=== PATIENT | male | born 1950 | race Caucasian/White ===

== ENCOUNTER → 2017-06-24 10:16 | Outpatient (CLI) | payer OTHER, SELFPAY ==
--- NOTE | 2017-06-24 | DI.MRI.S_ITS ---
PROCEDURE: MR KNEE LT WO CON INDICATIONS: left knee chronic pain and leg length discrepancy TECHNIQUE: Noncontrast sagittal PD fast spin echo and T2 fast spin echo with fat saturation, sagittal 3-D FLASH with fat saturation; coronal T1 spin echo and PD fast spin echo with fat saturation, and axial PD fast spin echo with fat saturation through the knee. COMPARISON: None. FINDINGS: Image quality: Diagnostic. Bones and joint: There is no acute fracture or dislocation. No suspicious osseous lesions are evident. There is a small knee joint effusion no significant fluid extending into a Roberts cyst. Intra-articular joint bodies are identified. One of the dominant joint bodies is located within the suprapatellar aspect of the joint space, measuring approximately 6 x 7 mm (image 5, series 3). Multiple joint bodies are seen within the region of the femoral notch. Severe degenerative changes of the knee are present within all 3 compartments with a large developing marginal osteophytes. There is extensive chondromalacia within the medial tibiofemoral compartment with denudation of the hyaline articular cartilage and a degenerative cystic change/reactive marrow edema involving the medial femoral condyle and medial tibial plateau. Extensive irregularity of the hyaline articular cartilage with numerous a small full-thickness defects noted involving the lateral tibiofemoral compartment and the patellofemoral compartment are present. Large marginal osteophytes are identified within the femoral notch. Cruciate ligaments: The anterior cruciate ligament is completely torn. The posterior cruciate ligament appears to be intact. Slight increased signal at the femoral attachment is noted. Menisci: Extensive medial meniscal complex tearing is identified with extensive maceration involving the body of the meniscus. Partial-thickness tearing involving the anterior and posterior attachments of the medial meniscus are present. There also is complex tearing identified involving the lateral meniscus with an oblique tear evident along the femoral articular surface through the body of the lateral meniscus. Prominent thinning of the free edge of the entire lateral meniscus is noted. There is partial thickness tearing involving anterior attachment and posterior root of the lateral meniscus. No complete tear is evident. Medial structures: The medial collateral ligament is intact. Mild edema about the medial collateral ligament is present. The semimembranosus tendon insertion is intact. The imaged portions of the pes anserinus tendons are unremarkable. A small amount of fluid is contained within the pes anserinus bursa. Lateral structures: The popliteal tendon is intact. The lateral collateral ligament proper (fibular collateral ligament) and the proximal tibiofibular ligaments are intact. The distal aspect of the biceps femoris tendon and the iliotibial band are intact. Anterior structures: The quadriceps and patellar tendons are intact. However, there is increased signal involving the distal aspect of the patellar tendon. There is prominent prepatellar bursal thickening with fluid contained within the bursa. There is mild edema within the infrapatellar fat pad. IMPRESSION: 1. Severe degenerative changes of the left knee are most pronounced within the medial tibiofemoral compartment. 2. Small knee joint effusion containing multiple joint bodies. 3. Full-thickness anterior cruciate ligament tear. 4. Complex tearing of the medial and lateral menisci (more pronounced involving the medial meniscus). 5. Possible medial collateral ligament sprain. 6. Mild distal patellar tendinopathy. 7. Fluid within the prepatellar soft tissues may represent prepatellar bursitis. Please correlate clinically. 8. Minimal amount of edema/fluid along the pes anserinus tendons. Please correlate clinically for possible pes anserinus bursitis. Dictated by: Malik Sandy M.D. on 06/24/2017 at 11:49 Approved by: Malik Sandy M.D. on 06/24/2017 at 11:55
== END ==
PROVIDERS: Family Provider Nurse Practitioner Family; PCP Nurse Practitioner Family; Visit Provider Nurse Practitioner Family
DX: M17.12 Unilateral primary osteoarthritis, left knee (principal); M25.462 Effusion, left knee; S83.242A Other tear of medial meniscus, current injury, left knee, initial encounter; S83.282A Other tear of lateral meniscus, current injury, left knee, initial encounter
CPT/HCPCS: 73721

== ENCOUNTER 2018-07-05 21:17 | Inpatient (IN) | payer OTHER, SELFPAY ==
[2018-07-05 21:24] VITALS: BP 155/86; PULSE 114; RESP 15; TEMP 37.5; O2SAT 98; BMI 38.2
--- NOTE | 2018-07-05 21:25 | DI.CT.S_ITS ---
PROCEDURE: CT HEAD/BRAIN WO CON INDICATIONS: stroke (NOT TPA CANDIDATE) TECHNIQUE: Noncontrast 4.5 mm thick angled axial sections acquired from the foramen magnum to the vertex, with coronal and sagittal reformats. For radiation dose reduction, the following was used: automated exposure control, adjustment of mA and/or kV according to patient size. COMPARISON: None. FINDINGS: Image quality: Excellent. CSF spaces: Basal cisterns are patent. No extra-axial fluid collections. The ventricles are symmetric in size and shape. Brain: No intracranial bleeds or masses. There is cerebral volume loss for age, with resultant ventricular and sulcal prominence. There are periventricular and deep white matter chronic small vessel ischemic changes. There is intracranial internal carotid artery atherosclerosis. Skull and face: Calvarium and visualized facial bones appear intact, without suspicious lesions. Sinuses: Visualized sinuses and mastoids are clear. IMPRESSION: No acute intracranial abnormality. Dictated by: Micki Groves M.D. on 07/05/2018 at 21:49 Approved by: Micki Groves M.D. on 07/05/2018 at 21:51
--- NOTE | 2018-07-05 21:41 | ED.NEUROSD ---
HPI - Neuro Symptoms/Deficit General Chief Complaint: Neuro Symptoms/Deficit Stated Complaint: stroke symptoms Time Seen by Provider: 07/05/18 21:20 Source: patient and EMS Mode of arrival: EMS Limitations: no limitations History of Present Illness HPI Narrative: 68-year-old male nonsmoker with noncontributory medical history presents by airlift for evaluation of neurologic symptoms, most notably difficulty in finding words which (per his ) started today at 4:00 p.m.. Patient felt a bit under the weather, very nonspecific in his description but main complaint is an expressive aphasia starting today about 4:00 p.m.. He was brought here by aeromedical ambulance and denies blurred vision, recent injury, or any other focal neurologic findings. He denies runny nose, sore throat or cough. He denies chest pain or shortness of breath. He denies abdominal pain or nausea, vomiting or diarrhea. He was not activated as a code stroke because though his be fast exam his positive his symptoms have been present greater than 4.5 hours and he does not have a LAMS score suggestive of large vessel occlusion. He says he knows exactly what he'd like to say, but is struggling with getting the words out as if there is a disconnect between his brain and mouth. Onset (ago): hour(s) Timing confirmed by: spouse Location: speech History of same: No Severity: moderate Exacerbating factors: none Context: sudden onset On Anticoagulants: No Associated symptoms: denies other symptoms Treatments Prior to Arrival: none Related Data Home Medications Medication Instructions Recorded Confirmed ibuprofen 600 mg PO DAILY #0 02/13/16 07/06/18 [Versabase Testostero] 25 mg TP SEE INSTRUCTIONS 07/06/18 07/06/18 Allergies Allergy/AdvReac Type Severity Reaction Status Date / Time No Known Drug Allergies Allergy Verified 07/05/18 21:28 Review of Systems Constitutional Denies chills, Denies fever(s), Denies lethargy and Denies weakness Eyes Denies change in vision, Denies eye discharge, Denies irritation and Denies loss of vision ENT Ears, Nose, Mouth, and Throat: Denies change in voice, Denies neck pain and Denies sore throat Cardiovascular Denies chest pain, Denies irregular heart rhythm, Denies lightheadedness, Denies palpitations, Denies dyspnea, Denies dyspnea on exertion and Denies orthopnea Respiratory Denies cough, Denies dyspnea, Denies dyspnea on exertion and Denies wheezing Gastrointestinal Gastrointestinal: Denies abdominal pain, Denies change in bowel habits, Denies diarrhea, Denies nausea and Denies vomiting Genitourinary Denies hematuria, Denies flank pain, Denies urinary incontinence and Denies urinary urgency Musculoskeletal Denies neck pain Integumentary/Breasts Denies pruritus, Denies erythema, Denies rash and Denies wounds Neurologic Reports abnormal speech, Denies confusion, Denies loss of vision and Denies weakness Psychiatric Denies anxiety, Denies confusion, Denies depression, Denies homicidal ideation and Denies suicidal ideation Endocrine Denies palpitations Hematologic/Lymphatic Denies easy bruising Allergic/Immunologic Denies wheezing PFSH Family History Mother Multiple myeloma Father Alzheimer disease Grandmother Stroke Social History household members: spouse Smoking Status: Never smoker alcohol intake: current Family History Mother Multiple myeloma Father Alzheimer disease Grandmother Stroke Social History household members: spouse Smoking Status: Never smoker alcohol intake: current Exam Narrative Exam Narrative: GENERAL: 68-year-old male appears stated age, struggling to speak clearly, visibly frustrated by this HEAD: Atraumatic. Normocephalic. No temporal or scalp tenderness. EYES: Pupils equal round and reactive. Extraocular motions intact. No scleral icterus. No injection or drainage. ENT: Nose without bleeding, purulent drainage or septal hematoma. Throat without erythema, tonsillar hypertrophy or exudate. Uvula midline. Airway patent. NECK: Trachea midline. No JVD or lymphadenopathy. Supple, nontender, no meningeal signs. CARDIOVASCULAR: Regular rate and rhythm without murmurs, gallops, or rubs. RESPIRATORY: Clear to auscultation. Breath sounds equal bilaterally. No wheezes, rales, or rhonchi. GASTROINTESTINAL: Abdomen soft, non-tender, nondistended. No hepato-splenomegaly, or palpable masses. No guarding. EXTREMITIES: No clubbing, cyanosis, or edema. No joint tenderness, effusion, or edema noted. BACK: Nontender without deformity or crepitance. No flank tenderness. NEURO: AOx3. SKIN: No rash or erythema. Initial Vital Signs Initial Vital Signs: Vital Signs Temperature 99.5 F 07/05/18 21:24 Pulse Rate 114 H 07/05/18 21:24 Respiratory Rate 15 07/05/18 21:24 Blood Pressure 155/86 H 07/05/18 21:24 Pulse Oximetry 98 07/05/18 21:24 Scores NIH Stroke Scale Level of Conciousness: Alert, keenly responsive Ask month/age: Answers both questions correctly. Open/close eyes, close hand: Performs both tasks correctly Best gaze horizontal: Normal Visual barboza: No visual loss Facial palsy: Normal symetrical movement Left arm drift: No drift for full 10 sec Right arm drift: No drift for full 10 sec Left leg drift: No drift for full 10 sec Right leg drift: No drift for full 10 sec Limb ataxia: Absent Sensory on face/arms/legs: Normal, no sensory loss Best language: Mild to moderate, slurs some words Dysarthria: Normal Extinction or inattention: No abnormality Total NIH Stroke scale score: 1 Course Orders Ordered: ED Orders 07/05/18 21:25 CT head/brain wo con Stat Urine Drug Screen, Rapid Stat EKG-12 Lead Stat 07/05/18 21:45 Basic Metabolic Panel Stat Complete Blood Count AUTO DIFF Stat Lactate (Lactic Acid) Stat Partial Thromboplastin Time Stat Prothrombin Time INR Stat 07/05/18 22:18 Blood Culture Stat 07/06/18 EC echo doppler complete Urgent US carotid doppler BI Urgent 07/06/18 00:58 Consult to Discharge Planning Routine Consult to Occupational Therapy Evaluate & Treat Consult to Physical Therapy Evaluate & Treat Consult to Speech Therapy Evaluate & Treat Education, smoking cessation ONGOING 07/06/18 01:25 UA Complete [Urinalysis and Microscopic] Routine 07/06/18 03:04 Troponin & CK Cardiac Panel Routine 07/06/18 06:00 MR stroke Urgent Hemoglobin A1C% w Est Avg Glu Routine Lipid Panel w/ VLDL Calc Routine Aspirin (Aspirin Chew) 81 mg PO DAILY CITLALI Sodium Chloride (Normal Saline 0.9%) 1,000 mls @ 100 mls/hr IV CONT CITLALI Last Infusion: 07/06/18 03:19 Dose: 100 mls/hr Admin: 07/05/18 22:10 Dose: 150 mls/hr Labetalol HCl (Trandate) 10 mg IV Q6H PRN PRN Reason: Hypertension Discontinued Medications Aspirin (Aspirin) 325 mg PO NOW ONE Stop: 07/05/18 22:56 Last Admin: 07/05/18 23:13 Dose: 325 mg Labetalol HCl (Trandate) 10 mg IV Q4HR PRN PRN Reason: Hypertension Consultations Consultation #1: call to hospitalist for admission Time: 22:45 Vital Signs - 8 hr 07/05/18 21:24 07/05/18 22:03 07/05/18 22:30 Temperature 99.5 F Pulse Rate 114 H 91 H 88 Respiratory Rate 15 25 H 27 H Blood Pressure 155/86 H Blood Pressure [Right Arm] 147/76 H 166/83 H Pulse Oximetry 98 98 96 07/05/18 23:25 07/06/18 00:30 Temperature 98.6 F Pulse Rate 90 95 H Respiratory Rate 13 19 Blood Pressure 159/92 H Blood Pressure [Right Arm] 163/78 H Pulse Oximetry 93 96 MDM - Neuro Symptoms/Deficit Lab Data Result diagrams: 07/05/18 21:45 07/05/18 21:45 Lab Results 07/05/18 07/05/18 07/05/18 Range/Units 21:45 21:45 21:45 WBC 8.9 (4.5-11.0) X10^3/uL RBC 4.31 L (4.5-5.9) X10^6/uL Hgb 14.2 (13.5-17.5) g/dL Hct 41.3 (41-53) % MCV 95.7 (80-100) fL MCH 32.8 (26-34) PG MCHC 34.3 (30-36) % RDW 13.0 (11.6-14.8) % Plt Count 257 (150-400) X10^3/uL Neut % (Auto) 83.8 H (50-75) % Lymph % (Auto) 9.4 L (25-40) % [place] % (Auto) 5.2 (3-14) % Eos % (Auto) 1.2 L (2-4) % Baso % (Auto) 0.4 (0-2) % Neut # (Auto) 7400 H (0977-1299) /uL Lymph # (Auto) 800 L (4104-0687) /uL [place] # (Auto) 500 (0-900) /uL Eos # (Auto) 100 (0-450) /uL Baso # (Auto) 0 (0-100) /uL PT 11.4 (10.1-12.7) SECONDS INR 1.0 (0.9-1.3) APTT 27 (26.4-36.2) SECONDS Sodium 139 (137-145) mmol/L Potassium 4.1 (3.4-5.1) mmol/L Chloride 103 (98-107) mmol/L Carbon Dioxide 26 (22-32) mmol/L BUN 18 (9-20) mg/dL Creatinine 0.90 (0.66-1.25) mg/dL Estimated GFR > 60.0 (>60) mL/min BUN/Creatinine Ratio 20.0 (6-22) Glucose 125 H (80-110) mg/dL Lactate (0.7-2.1) mmol/L Calcium 9.2 (8.4-10.2) mg/dL Total Creatine Kinase (55-170) U/L CK-MB (CK-2) CK-MB (CK-2) Rel Index Urine Color Urine Appearance Urine pH (4.5-8.0) Ur Specific [place] (1.000-1.035) Urine Protein (Negative) Urine Glucose (UA) (Negative) g/dL Urine Ketones (NEGATIVE) Urine Occult Blood (Negative) Urine Nitrate (Negative) Urine Bilirubin (NEGATIVE) Urine Urobilinogen (0.2) E.U./dL Ur Leukocyte Esterase (NEGATIVE) Urine RBC (0-5/HPF) Urine WBC (0-5/HPF) Urine Bacteria (None) Urine Mucus (Negative) Ur Culture Indicated? Urine Opiates Screen (Negative) Ur Oxycodone Screen (Negative) Urine Methadone Screen (Negative) Ur Barbiturates Screen (Negative) U Tricyclic Antidepress (Negative) Ur Phencyclidine Scrn (Negative) Ur Amphetamines Screen (Negative) U Methamphetamines Scrn (Negative) Ur MDMA Scrn (Ecstasy) (Negative) U Benzodiazepines Scrn (Negative) Urine Cocaine Screen (Negative) U Marijuana (THC) Screen (Negative) 07/05/18 07/05/18 07/06/18 Range/Units 21:45 21:45 01:25 WBC (4.5-11.0) X10^3/uL RBC (4.5-5.9) X10^6/uL Hgb (13.5-17.5) g/dL Hct (41-53) % MCV (80-100) fL MCH (26-34) PG MCHC (30-36) % RDW (11.6-14.8) % Plt Count (150-400) X10^3/uL Neut % (Auto) (50-75) % Lymph % (Auto) (25-40) % [place] % (Auto) (3-14) % Eos % (Auto) (2-4) % Baso % (Auto) (0-2) % Neut # (Auto) (0943-6076) /uL Lymph # (Auto) (2256-7339) /uL [place] # (Auto) (0-900) /uL Eos # (Auto) (0-450) /uL Baso # (Auto) (0-100) /uL PT (10.1-12.7) SECONDS INR (0.9-1.3) APTT (26.4-36.2) SECONDS Sodium (137-145) mmol/L Potassium (3.4-5.1) mmol/L Chloride (98-107) mmol/L Carbon Dioxide (22-32) mmol/L BUN (9-20) mg/dL Creatinine (0.66-1.25) mg/dL Estimated GFR (>60) mL/min BUN/Creatinine Ratio (6-22) Glucose (80-110) mg/dL Lactate 1.6 (0.7-2.1) mmol/L Calcium (8.4-10.2) mg/dL Total Creatine Kinase 94 (55-170) U/L CK-MB (CK-2) TNP CK-MB (CK-2) Rel Index TNP Urine Color Urine Appearance Urine pH (4.5-8.0) Ur Specific [place] (1.000-1.035) Urine Protein (Negative) Urine Glucose (UA) (Negative) g/dL Urine Ketones (NEGATIVE) Urine Occult Blood (Negative) Urine Nitrate (Negative) Urine Bilirubin (NEGATIVE) Urine Urobilinogen (0.2) E.U./dL Ur Leukocyte Esterase (NEGATIVE) Urine RBC (0-5/HPF) Urine WBC (0-5/HPF) Urine Bacteria (None) Urine Mucus (Negative) Ur Culture Indicated? Urine Opiates Screen Negative (Negative) Ur Oxycodone Screen Negative (Negative) Urine Methadone Screen Negative (Negative) Ur Barbiturates Screen Negative (Negative) U Tricyclic Antidepress Negative (Negative) Ur Phencyclidine Scrn Negative (Negative) Ur Amphetamines Screen Negative (Negative) U Methamphetamines Scrn Negative (Negative) Ur MDMA Scrn (Ecstasy) Negative (Negative) U Benzodiazepines Scrn Negative (Negative) Urine Cocaine Screen Negative (Negative) U Marijuana (THC) Screen Negative (Negative) 07/06/18 Range/Units 01:25 WBC (4.5-11.0) X10^3/uL RBC (4.5-5.9) X10^6/uL Hgb (13.5-17.5) g/dL Hct (41-53) % MCV (80-100) fL MCH (26-34) PG MCHC (30-36) % RDW (11.6-14.8) % Plt Count (150-400) X10^3/uL Neut % (Auto) (50-75) % Lymph % (Auto) (25-40) % [place] % (Auto) (3-14) % Eos % (Auto) (2-4) % Baso % (Auto) (0-2) % Neut # (Auto) (0970-0864) /uL Lymph # (Auto) (5129-9979) /uL [place] # (Auto) (0-900) /uL Eos # (Auto) (0-450) /uL Baso # (Auto) (0-100) /uL PT (10.1-12.7) SECONDS INR (0.9-1.3) APTT (26.4-36.2) SECONDS Sodium (137-145) mmol/L Potassium (3.4-5.1) mmol/L Chloride (98-107) mmol/L Carbon Dioxide (22-32) mmol/L BUN (9-20) mg/dL Creatinine (0.66-1.25) mg/dL Estimated GFR (>60) mL/min BUN/Creatinine Ratio (6-22) Glucose (80-110) mg/dL Lactate (0.7-2.1) mmol/L Calcium (8.4-10.2) mg/dL Total Creatine Kinase (55-170) U/L CK-MB (CK-2) CK-MB (CK-2) Rel Index Urine Color Yellow Urine Appearance Clear Urine pH 5.0 (4.5-8.0) Ur Specific [place] >=1.030 H (1.000-1.035) Urine Protein Negative (Negative) Urine Glucose (UA) Negative (Negative) g/dL Urine Ketones Negative (NEGATIVE) Urine Occult Blood Negative (Negative) Urine Nitrate Negative (Negative) Urine Bilirubin Negative (NEGATIVE) Urine Urobilinogen 0.2 (0.2) E.U./dL Ur Leukocyte Esterase Negative (NEGATIVE) Urine RBC None seen (0-5/HPF) Urine WBC None seen (0-5/HPF) Urine Bacteria None seen (None) Urine Mucus 1+ H (Negative) Ur Culture Indicated? Cult not indicated Urine Opiates Screen (Negative) Ur Oxycodone Screen (Negative) Urine Methadone Screen (Negative) Ur Barbiturates Screen (Negative) U Tricyclic Antidepress (Negative) Ur Phencyclidine Scrn (Negative) Ur Amphetamines Screen (Negative) U Methamphetamines Scrn (Negative) Ur MDMA Scrn (Ecstasy) (Negative) U Benzodiazepines Scrn (Negative) Urine Cocaine Screen (Negative) U Marijuana (THC) Screen (Negative) Point of Care Testing Glucose POC [address] scan - head: Radiologist's impression: Dusty Ge 68 M [address] [place] [address] CT Scan Report Signed Patient: Dusty Ge LMR#: [id number] : 8Acct:[id number] Age/Sex: 68 / MDate of Service: 07/05/18 Loc: ED Accession Number: [id number] Procedure: CT head/brain wo con Ordering Provider: Ranjith Le D.O. PROCEDURE: CT HEAD/BRAIN WO CON INDICATIONS: stroke (NOT TPA CANDIDATE) TECHNIQUE: Noncontrast 4.5 mm thick angled axial sections acquired from the foramen magnum to the vertex, with coronal and sagittal reformats. For radiation dose reduction, the following was used: automated exposure control, adjustment of mA and/or kV according to patient size. COMPARISON: None. FINDINGS: Image quality: Excellent. CSF spaces: Basal cisterns are patent. No extra-axial fluid collections. The ventricles are symmetric in size and shape. Brain: No intracranial bleeds or masses. There is cerebral volume loss for age, with resultant ventricular and sulcal prominence. There are periventricular and deep white matter chronic small vessel ischemic changes. There is intracranial internal carotid artery atherosclerosis. Skull and face: Calvarium and visualized facial bones appear intact, without suspicious lesions. Sinuses: Visualized sinuses and mastoids are clear. IMPRESSION: No acute intracranial abnormality. Dictated by: Micki Groves M.D. on 07/05/2018 at 21:49 Approved by: Micki Groves M.D. on 07/05/2018 at 21:51 ECG Data Attestation: I personally reviewed and interpreted this ECG as follows: Interpretation: EKG is normal sinus rhythm rate [ 102] and free of any signs of ischemia or ectopy. No ST segmental elevation or depression. No T wave inversions. Incomplete RBBB. ND 150. QRS 102. QT 315 MDM Narrative Medical decision making narrative: 68M presents with expressive aphasia since 1600 (5.25 hours) without evidence of large vessel occlusion. CT normal. NIHSS 1. Not TPA or interventional candidate. Given ASA. Admit for stroke eval. Discharge Plan Departure Patient Disposition: Admitted As Inpatient Clinical Impression: Cerebrovascular accident Qualifiers: CVA mechanism: unspecified Qualified Code(s): I63.9 - Cerebral infarction, unspecified Discharge Date/Time: 07/06/18 00:29 Interventions: ED Discharge Assessment Last Done: 07/06/18 00:28 Referrals: Mirlande Francis ARNP [Primary Care Provider] - Admit Date/Time: 07/05/18 23:18 Admit Provider: Josh Chiu
[2018-07-05 22:03] VITALS: BP 147/76; PULSE 91; RESP 25; O2SAT 98
[2018-07-05] MEDS: SODIUM CHLORIDE 0.9% 1,000 ML 150 ML IV (22:10)
[2018-07-05 22:17] LABS: Prothrombin Time 11.4 SECONDS (10.1-12.7)
[2018-07-05 22:20] LABS: PTT Partial Thromboplastin Tim 27 SECONDS (26.4-36.2)
[2018-07-05 22:21] LABS: Add Manual Diff / Slide Review NO; Basophils Absolute Auto 0 /uL (0-100); Basophils Percent Auto 0.4 % (0-2); Eosinophils Absolute Auto 100 /uL (0-450); Eosinophils Percent Auto 1.2 % (2-4); Hematocrit 41.3 % (41-53); Hemoglobin 14.2 g/dL (13.5-17.5); Lymphocytes Absolute Auto 800 /uL (1100-4500); Lymphocytes Percent Auto 9.4 % (25-40); Mean Corpuscular HGB Conc 34.3 % (30-36); Mean Corpuscular Hemoglobin 32.8 PG (26-34); Mean Corpuscular Volume 95.7 fL (80-100); Monocytes Absolute Auto 500 /uL (0-900); Monocytes Percent Auto 5.2 % (3-14); Neutrophils Absolute Auto 7400 /uL (1500-7000); Neutrophils Percent Auto 83.8 % (50-75); Platelet Count 257 X10^3/uL (150-400); Red Blood Cell Count 4.31 X10^6/uL (4.5-5.9); White Blood Cell Count 8.9 X10^3/uL (4.5-11.0)
[2018-07-05 22:30] VITALS: BP 166/83; PULSE 88; RESP 27; O2SAT 96
[2018-07-05 22:34] LABS: Lactate (Lactic Acid) 1.6 mmol/L (0.7-2.1)
[2018-07-05 22:35] LABS: Blood Urea Nitrogen 18 mg/dL (9-20); Calcium 9.2 mg/dL (8.4-10.2); Carbon Dioxide 26 mmol/L (22-32); Chloride 103 mmol/L (98-107); Estimated Glomerular Filt Rate > 60.0 mL/min (>60); Glucose 125 mg/dL (80-110); HEMOLYSIS < 15 (0-50); Potassium 4.1 mmol/L (3.4-5.1); Sodium 139 mmol/L (137-145)
--- NOTE | 2018-07-05 22:52 | ED_ITS ---
HPI - Neuro Symptoms/Deficit General Chief Complaint: Neuro Symptoms/Deficit Stated Complaint: stroke symptoms Time Seen by Provider: 07/05/18 21:20 Source: patient and EMS Mode of arrival: EMS Limitations: no limitations History of Present Illness HPI Narrative: 68-year-old male nonsmoker with noncontributory medical history presents by airlift for evaluation of neurologic symptoms, most notably difficulty in finding words which (per his ) started today at 4:00 p.m.. Patient felt a bit under the weather, very nonspecific in his description but main complaint is an expressive aphasia starting today about 4:00 p.m.. He was brought here by aeromedical ambulance and denies blurred vision, recent injury, or any other focal neurologic findings. He denies runny nose, sore throat or cough. He denies chest pain or shortness of breath. He denies abdominal pain or nausea, vomiting or diarrhea. He was not activated as a code stroke because though his be fast exam his positive his symptoms have been present greater than 4.5 hours and he does not have a LAMS score suggestive of large vessel occlusion. He says he knows exactly what he'd like to say, but is struggling with getting the words out as if there is a disconnect between his brain and mouth. Onset (ago): hour(s) Timing confirmed by: spouse Location: speech History of same: No Severity: moderate Exacerbating factors: none Context: sudden onset On Anticoagulants: No Associated symptoms: denies other symptoms Treatments Prior to Arrival: none Related Data Home Medications Medication Instructions Recorded Confirmed ibuprofen 600 mg PO DAILY #0 02/13/16 07/06/18 [Versabase Testostero] 25 mg TP SEE INSTRUCTIONS 07/06/18 07/06/18 Allergies Allergy/AdvReac Type Severity Reaction Status Date / Time No Known Drug Allergies Allergy Verified 07/05/18 21:28 Review of Systems Constitutional Denies chills, Denies fever(s), Denies lethargy and Denies weakness Eyes Denies change in vision, Denies eye discharge, Denies irritation and Denies loss of vision ENT Ears, Nose, Mouth, and Throat: Denies change in voice, Denies neck pain and Denies sore throat Cardiovascular Denies chest pain, Denies irregular heart rhythm, Denies lightheadedness, Denies palpitations, Denies dyspnea, Denies dyspnea on exertion and Denies orthopnea Respiratory Denies cough, Denies dyspnea, Denies dyspnea on exertion and Denies wheezing Gastrointestinal Gastrointestinal: Denies abdominal pain, Denies change in bowel habits, Denies diarrhea, Denies nausea and Denies vomiting Genitourinary Denies hematuria, Denies flank pain, Denies urinary incontinence and Denies urinary urgency Musculoskeletal Denies neck pain Integumentary/Breasts Denies pruritus, Denies erythema, Denies rash and Denies wounds Neurologic Reports abnormal speech, Denies confusion, Denies loss of vision and Denies weakness Psychiatric Denies anxiety, Denies confusion, Denies depression, Denies homicidal ideation and Denies suicidal ideation Endocrine Denies palpitations Hematologic/Lymphatic Denies easy bruising Allergic/Immunologic Denies wheezing PFSH Family History Mother Multiple myeloma Father Alzheimer disease Grandmother Stroke Social History household members: spouse Smoking Status: Never smoker alcohol intake: current Family History Mother Multiple myeloma Father Alzheimer disease Grandmother Stroke Social History household members: spouse Smoking Status: Never smoker alcohol intake: current Exam Narrative Exam Narrative: GENERAL: 68-year-old male appears stated age, struggling to speak clearly, visibly frustrated by this HEAD: Atraumatic. Normocephalic. No temporal or scalp tenderness. EYES: Pupils equal round and reactive. Extraocular motions intact. No scleral icterus. No injection or drainage. ENT: Nose without bleeding, purulent drainage or septal hematoma. Throat without erythema, tonsillar hypertrophy or exudate. Uvula midline. Airway patent. NECK: Trachea midline. No JVD or lymphadenopathy. Supple, nontender, no meningeal signs. CARDIOVASCULAR: Regular rate and rhythm without murmurs, gallops, or rubs. RESPIRATORY: Clear to auscultation. Breath sounds equal bilaterally. No wheezes, rales, or rhonchi. GASTROINTESTINAL: Abdomen soft, non-tender, nondistended. No hepato- splenomegaly, or palpable masses. No guarding. EXTREMITIES: No clubbing, cyanosis, or edema. No joint tenderness, effusion, or edema noted. BACK: Nontender without deformity or crepitance. No flank tenderness. NEURO: AOx3. SKIN: No rash or erythema. Initial Vital Signs Initial Vital Signs: Vital Signs Temperature 99.5 F 07/05/18 21:24 Pulse Rate 114 H 07/05/18 21:24 Respiratory Rate 15 07/05/18 21:24 Blood Pressure 155/86 H 07/05/18 21:24 Pulse Oximetry 98 07/05/18 21:24 Scores NIH Stroke Scale Level of Conciousness: Alert, keenly responsive Ask month/age: Answers both questions correctly. Open/close eyes, close hand: Performs both tasks correctly Best gaze horizontal: Normal Visual barboza: No visual loss Facial palsy: Normal symetrical movement Left arm drift: No drift for full 10 sec Right arm drift: No drift for full 10 sec Left leg drift: No drift for full 10 sec Right leg drift: No drift for full 10 sec Limb ataxia: Absent Sensory on face/arms/legs: Normal, no sensory loss Best language: Mild to moderate, slurs some words Dysarthria: Normal Extinction or inattention: No abnormality Total NIH Stroke scale score: 1 Course Orders Ordered: ED Orders 07/05/18 21:25 CT head/brain wo con Stat Urine Drug Screen, Rapid Stat EKG-12 Lead Stat 07/05/18 21:45 Basic Metabolic Panel Stat Complete Blood Count AUTO DIFF Stat Lactate (Lactic Acid) Stat Partial Thromboplastin Time Stat Prothrombin Time INR Stat 07/05/18 22:18 Blood Culture Stat 07/06/18 EC echo doppler complete Urgent US carotid doppler BI Urgent 07/06/18 00:58 Consult to Discharge Planning Routine Consult to Occupational Therapy Evaluate & Treat Consult to Physical Therapy Evaluate & Treat Consult to Speech Therapy Evaluate & Treat Education, smoking cessation ONGOING 07/06/18 01:25 UA Complete [Urinalysis and Microscopic] Routine 07/06/18 03:04 Troponin & CK Cardiac Panel Routine 07/06/18 06:00 MR stroke Urgent Hemoglobin A1C% w Est Avg Glu Routine Lipid Panel w/ VLDL Calc Routine Aspirin (Aspirin Chew) 81 mg PO DAILY CITLALI Sodium Chloride (Normal Saline 0.9%) 1,000 mls @ 100 mls/hr IV CONT CITLALI Last Infusion: 07/06/18 03:19 Dose: 100 mls/hr Admin: 07/05/18 22:10 Dose: 150 mls/hr Labetalol HCl (Trandate) 10 mg IV Q6H PRN PRN Reason: Hypertension Discontinued Medications Aspirin (Aspirin) 325 mg PO NOW ONE Stop: 07/05/18 22:56 Last Admin: 07/05/18 23:13 Dose: 325 mg Labetalol HCl (Trandate) 10 mg IV Q4HR PRN PRN Reason: Hypertension Consultations Consultation #1: call to hospitalist for admission Time: 22:45 Vital Signs - 8 hr 07/05/18 21:24 07/05/18 22:03 07/05/18 22:30 Temperature 99.5 F Pulse Rate 114 H 91 H 88 Respiratory Rate 15 25 H 27 H Blood Pressure 155/86 H Blood Pressure [Right Arm] 147/76 H 166/83 H Pulse Oximetry 98 98 96 07/05/18 23:25 07/06/18 00:30 Temperature 98.6 F Pulse Rate 90 95 H Respiratory Rate 13 19 Blood Pressure 159/92 H Blood Pressure [Right Arm] 163/78 H Pulse Oximetry 93 96 MDM - Neuro Symptoms/Deficit Lab Data Result diagrams: 07/05/18 21:45 07/05/18 21:45 Lab Results 07/05/18 07/05/18 07/05/18 Range/Units 21:45 21:45 21:45 WBC 8.9 (4.5-11.0) X10^3/uL RBC 4.31 L (4.5-5.9) X10^6/uL Hgb 14.2 (13.5-17.5) g/dL Hct 41.3 (41-53) % MCV 95.7 (80-100) fL MCH 32.8 (26-34) PG MCHC 34.3 (30-36) % RDW 13.0 (11.6-14.8) % Plt Count 257 (150-400) X10^3/uL Neut % (Auto) 83.8 H (50-75) % Lymph % (Auto) 9.4 L (25-40) % Marinette % (Auto) 5.2 (3-14) % Eos % (Auto) 1.2 L (2-4) % Baso % (Auto) 0.4 (0-2) % Neut # (Auto) 7400 H (9499-4799) /uL Lymph # (Auto) 800 L (2831-3574) /uL Marinette # (Auto) 500 (0-900) /uL Eos # (Auto) 100 (0-450) /uL Baso # (Auto) 0 (0-100) /uL PT 11.4 (10.1-12.7) SECONDS INR 1.0 (0.9-1.3) APTT 27 (26.4-36.2) SECONDS Sodium 139 (137-145) mmol/L Potassium 4.1 (3.4-5.1) mmol/L Chloride 103 (98-107) mmol/L Carbon Dioxide 26 (22-32) mmol/L BUN 18 (9-20) mg/dL Creatinine 0.90 (0.66-1.25) mg/dL Estimated GFR > 60.0 (>60) mL/min BUN/Creatinine Ratio 20.0 (6-22) Glucose 125 H (80-110) mg/dL Lactate (0.7-2.1) mmol/L Calcium 9.2 (8.4-10.2) mg/dL Total Creatine Kinase (55-170) U/L CK-MB (CK-2) CK-MB (CK-2) Rel Index Urine Color Urine Appearance Urine pH (4.5-8.0) Ur Specific Acworth (1.000-1.035) Urine Protein (Negative) Urine Glucose (UA) (Negative) g/dL Urine Ketones (NEGATIVE) Urine Occult Blood (Negative) Urine Nitrate (Negative) Urine Bilirubin (NEGATIVE) Urine Urobilinogen (0.2) E.U./dL Ur Leukocyte Esterase (NEGATIVE) Urine RBC (0-5/HPF) Urine WBC (0-5/HPF) Urine Bacteria (None) Urine Mucus (Negative) Ur Culture Indicated? Urine Opiates Screen (Negative) Ur Oxycodone Screen (Negative) Urine Methadone Screen (Negative) Ur Barbiturates Screen (Negative) U Tricyclic Antidepress (Negative) Ur Phencyclidine Scrn (Negative) Ur Amphetamines Screen (Negative) U Methamphetamines Scrn (Negative) Ur MDMA Scrn (Ecstasy) (Negative) U Benzodiazepines Scrn (Negative) Urine Cocaine Screen (Negative) U Marijuana (THC) Screen (Negative) 07/05/18 07/05/18 07/06/18 Range/Units 21:45 21:45 01:25 WBC (4.5-11.0) X10^3/uL RBC (4.5-5.9) X10^6/uL Hgb (13.5-17.5) g/dL Hct (41-53) % MCV (80-100) fL MCH (26-34) PG MCHC (30-36) % RDW (11.6-14.8) % Plt Count (150-400) X10^3/uL Neut % (Auto) (50-75) % Lymph % (Auto) (25-40) % Marinette % (Auto) (3-14) % Eos % (Auto) (2-4) % Baso % (Auto) (0-2) % Neut # (Auto) (4188-2254) /uL Lymph # (Auto) (7378-8187) /uL Marinette # (Auto) (0-900) /uL Eos # (Auto) (0-450) /uL Baso # (Auto) (0-100) /uL PT (10.1-12.7) SECONDS INR (0.9-1.3) APTT (26.4-36.2) SECONDS Sodium (137-145) mmol/L Potassium (3.4-5.1) mmol/L Chloride (98-107) mmol/L Carbon Dioxide (22-32) mmol/L BUN (9-20) mg/dL Creatinine (0.66-1.25) mg/dL Estimated GFR (>60) mL/min BUN/Creatinine Ratio (6-22) Glucose (80-110) mg/dL Lactate 1.6 (0.7-2.1) mmol/L Calcium (8.4-10.2) mg/dL Total Creatine Kinase 94 (55-170) U/L CK-MB (CK-2) TNP CK-MB (CK-2) Rel Index TNP Urine Color Urine Appearance Urine pH (4.5-8.0) Ur Specific Acworth (1.000-1.035) Urine Protein (Negative) Urine Glucose (UA) (Negative) g/dL Urine Ketones (NEGATIVE) Urine Occult Blood (Negative) Urine Nitrate (Negative) Urine Bilirubin (NEGATIVE) Urine Urobilinogen (0.2) E.U./dL Ur Leukocyte Esterase (NEGATIVE) Urine RBC (0-5/HPF) Urine WBC (0-5/HPF) Urine Bacteria (None) Urine Mucus (Negative) Ur Culture Indicated? Urine Opiates Screen Negative (Negative) Ur Oxycodone Screen Negative (Negative) Urine Methadone Screen Negative (Negative) Ur Barbiturates Screen Negative (Negative) U Tricyclic Antidepress Negative (Negative) Ur Phencyclidine Scrn Negative (Negative) Ur Amphetamines Screen Negative (Negative) U Methamphetamines Scrn Negative (Negative) Ur MDMA Scrn (Ecstasy) Negative (Negative) U Benzodiazepines Scrn Negative (Negative) Urine Cocaine Screen Negative (Negative) U Marijuana (THC) Screen Negative (Negative) 07/06/18 Range/Units 01:25 WBC (4.5-11.0) X10^3/uL RBC (4.5-5.9) X10^6/uL Hgb (13.5-17.5) g/dL Hct (41-53) % MCV (80-100) fL MCH (26-34) PG MCHC (30-36) % RDW (11.6-14.8) % Plt Count (150-400) X10^3/uL Neut % (Auto) (50-75) % Lymph % (Auto) (25-40) % Marinette % (Auto) (3-14) % Eos % (Auto) (2-4) % Baso % (Auto) (0-2) % Neut # (Auto) (1391-3245) /uL Lymph # (Auto) (6086-4961) /uL Marinette # (Auto) (0-900) /uL Eos # (Auto) (0-450) /uL Baso # (Auto) (0-100) /uL PT (10.1-12.7) SECONDS INR (0.9-1.3) APTT (26.4-36.2) SECONDS Sodium (137-145) mmol/L Potassium (3.4-5.1) mmol/L Chloride (98-107) mmol/L Carbon Dioxide (22-32) mmol/L BUN (9-20) mg/dL Creatinine (0.66-1.25) mg/dL Estimated GFR (>60) mL/min BUN/Creatinine Ratio (6-22) Glucose (80-110) mg/dL Lactate (0.7-2.1) mmol/L Calcium (8.4-10.2) mg/dL Total Creatine Kinase (55-170) U/L CK-MB (CK-2) CK-MB (CK-2) Rel Index Urine Color Yellow Urine Appearance Clear Urine pH 5.0 (4.5-8.0) Ur Specific Acworth >=1.030 H (1.000-1.035) Urine Protein Negative (Negative) Urine Glucose (UA) Negative (Negative) g/dL Urine Ketones Negative (NEGATIVE) Urine Occult Blood Negative (Negative) Urine Nitrate Negative (Negative) Urine Bilirubin Negative (NEGATIVE) Urine Urobilinogen 0.2 (0.2) E.U./dL Ur Leukocyte Esterase Negative (NEGATIVE) Urine RBC None seen (0-5/HPF) Urine WBC None seen (0-5/HPF) Urine Bacteria None seen (None) Urine Mucus 1+ H (Negative) Ur Culture Indicated? Cult not indicated Urine Opiates Screen (Negative) Ur Oxycodone Screen (Negative) Urine Methadone Screen (Negative) Ur Barbiturates Screen (Negative) U Tricyclic Antidepress (Negative) Ur Phencyclidine Scrn (Negative) Ur Amphetamines Screen (Negative) U Methamphetamines Scrn (Negative) Ur MDMA Scrn (Ecstasy) (Negative) U Benzodiazepines Scrn (Negative) Urine Cocaine Screen (Negative) U Marijuana (THC) Screen (Negative) Point of Care Testing Glucose POC [address] scan - head: Radiologist's impression: Dusty Ge 68 M [address] [place] [address] CT Scan Report Signed Patient: Dusty Ge LMR#: [id number] : 8Acct:[id number] Age/Sex: 68 / MDate of Service: 07/05/18 Loc: ED Accession Number: [id number] Procedure: CT head/brain wo con Ordering Provider: Ranjith Le D.O. PROCEDURE: CT HEAD/BRAIN WO CON INDICATIONS: stroke (NOT TPA CANDIDATE) TECHNIQUE: Noncontrast 4.5 mm thick angled axial sections acquired from the foramen magnum to the vertex, with coronal and sagittal reformats. For radiation dose reduction, the following was used: automated exposure control, adjustment of mA and/or kV according to patient size. COMPARISON: None. FINDINGS: Image quality: Excellent. CSF spaces: Basal cisterns are patent. No extra-axial fluid collections. The ventricles are symmetric in size and shape. Brain: No intracranial bleeds or masses. There is cerebral volume loss for age, with resultant ventricular and sulcal prominence. There are periventricular and deep white matter chronic small vessel ischemic changes. There is intracranial internal carotid artery atherosclerosis. Skull and face: Calvarium and visualized facial bones appear intact, without suspicious lesions. Sinuses: Visualized sinuses and mastoids are clear. IMPRESSION: No acute intracranial abnormality. Dictated by: Micki Groves M.D. on 07/05/2018 at 21:49 Approved by: Micki Groves M.D. on 07/05/2018 at 21:51 ECG Data Attestation: I personally reviewed and interpreted this ECG as follows: Interpretation: EKG is normal sinus rhythm rate [ 102] and free of any signs of ischemia or ectopy. No ST segmental elevation or depression. No T wave inversions. Incomplete RBBB. MO 150. QRS 102. QT 315 MDM Narrative Medical decision making narrative: 68M presents with expressive aphasia since 1600 (5.25 hours) without evidence of large vessel occlusion. CT normal. NIHSS 1. Not TPA or interventional candidate. Given ASA. Admit for stroke eval. Discharge Plan Departure Patient Disposition: Admitted As Inpatient Clinical Impression: Cerebrovascular accident Qualifiers: CVA mechanism: unspecified Qualified Code(s): I63.9 - Cerebral infarction, unspecified Discharge Date/Time: 07/06/18 00:29 Interventions: ED Discharge Assessment Last Done: 07/06/18 00:28 Referrals: Mirlande Francis ARNP [Primary Care Provider] - Admit Date/Time: 07/05/18 23:18 Admit Provider: Josh Chiu
[2018-07-05] MEDS: ASPIRIN 325 MG TABLET PO (23:13)
[2018-07-05 23:25] VITALS: BP 163/78; PULSE 90; RESP 13; O2SAT 93
[2018-07-06] VITALS (11 sets, daily range): BP systolic 125–159; BP diastolic 59–92; PULSE 68–119; RESP 16–20; TEMP 36.2–37.2; O2SAT 65–100; BMI 37.4
--- NOTE | 2018-07-06 | DI.ECHO.S_ITS ---
[facility]---------+ [facility] +---------+ : : [address] [place] [address] : : : : [id number] : : : : Phone: [phone] Echocardiogram Report + + :Name: PAUL SUN Study Date: 07/06/2018 Height: 66 in : :[facility] Weight: 232 lb : : Gender: Male BSA: 2.1 m2 : :: 1950 Age: 68 yrs BP: 134/75 mmHg: :Reason For Study: STROKE : :Ordering Physician: Kj : :Hospitalist Performed By: Leela Schaffer : :Referring: LISE DIEZ : + + Interpretation Summary Bubble study could not be performed due to poor image quality. Image quality was compromised due to patient's underlying mental status and inability to participate in exam. -The left ventricular ejection fraction is normal. -The right ventricle grossly appears normal in size with probable normal systolic function. -Pulmonary artery pressures cannot be estimated because of the lack of a measurable TR jet velocity. -No hemodynamically significant valvular abnormalities. -There is no prior echocardiogram noted for this patient. Procedure: A two-dimensional transthoracic echocardiogram with color flow and Doppler was performed. The study quality was technically difficult. There is no prior echocardiogram noted for this patient. A contrast injection of Definity was performed to improve assessment of LV function. The patient was in normal sinus rhythm during the exam. Left Ventricle: The left ventricle is normal in size. Trabeculae near apex are visualized. No thrombus is observed. There is no thrombus. The ejection fraction is estimated to be 60-65%. The left ventricular ejection fraction is normal. There are no focal wall motion abnormalities. Diastolic parameters suggest a relaxation abnormality of the left ventricle, consistent with probable normal filling pressures. Right Ventricle: The right ventricle grossly appears normal in size with probable normal systolic function. Atria: The left atrium is not well visualized. Right atrial size is normal. There is no Doppler evidence for an interatrial shunt. Mitral Valve: The mitral valve is grossly normal. At least trace MR. Aortic Valve: The aortic valve is normal in structure and function. There is mild aortic regurgitation. Tricuspid Valve: The tricuspid valve is normal. There is a trace or physiologic amount of tricuspid regurgitation. Pulmonary artery pressures cannot be estimated because of the lack of a measurable TR jet velocity. Pulmonic Valve: The pulmonic valve is not well seen, but is grossly normal. There is a trace or physiologic amount of pulmonic regurgitation. Great Vessels: The aortic root is borderline dilated. The ascending aorta is normal in size. The pulmonary artery is normal size. The IVC is of normal diameter and collapses greater than 50% with a sniff. This suggests a low right atrial pressure of 3 mm Hg. Pericardium/ Pleura There is no pericardial effusion. There is no pleural effusion. MMode/2D Measurements & Calculations LVIDd: 4.7 cm LVOT diam: 2.2 cm LVIDs: 3.1 cm Ao root diam: 4.0 cm FS: 34.5 % asc Aorta Diam: 3.4 cm EPSS: 0.23 cm Ao Arch Diam (Prox Trans): 3.5 cm IVSd: 0.96 cm LVPWd: 0.83 cm LV patterson. diameter/BSA (cm/m^2): 2.2 LV sys. diameter/BSA (cm/m^2): 1.5 LA A4 area: 25.5 cm2 RA long axis: 5.0 cm LA length (vol): 6.0 cm RA area: 17.2 cm2 RA vol: 50.5 ml RA : 23.7 ml/m2 IVC diam: 1.2 cm RVD1 (basal): 4.0 cm RVD2 (mid): 2.5 cm TAPSE: 1.8 cm Doppler Measurements & Calculations Ao V2 max: 125.6 cm/sec LVOT Max Avel: 93.1 cm/sec Ao V2 mean: 83.4 cm/sec LV V1 max P.5 mmHg Ao max P.3 mmHg LV V1 VTI: 21.5 cm Ao mean P.1 mmHg BLAKE(I,D): 3.2 cm2 Ao V2 VTI: 25.0 cm BLAKE(V,D): 2.7 cm2 sev ratio: 0.86 BLAKE indexed to BSA (cm^2/m^2): 1.5 MV E max avel: 64.5 cm/sec PA V2 max: 93.8 cm/sec MV A max avel: 73.5 cm/sec PA V2 mean: 62.3 cm/sec MV E/A: 0.88 PA mean P.7 mmHg Med Peak E' Avel: 5.9 cm/sec PA Accel Time: 0.11 sec E/E' med: 10.9 Lat Peak E' Avel: 8.1 cm/sec E/E' lat: 8.0 E/e' average: 9.5 MV dec time: 0.13 sec SV([facility]): 79.2 ml Electronically signed by: Kirill Tucker M.D. on Reading Physician:07/06/2018 06:54 PM
[2018-07-06 01:30] LABS: Bacteria Urine None Seen; RBC Urine None Seen (0-5/HPF); WBC Urine None Seen (0-5/HPF)
--- NOTE | 2018-07-06 01:34 | PC.ADMIT ---
Addendum entered by Joy Manriquez R.N. 07/06/18 06:25: 0513 THERAPY TECHNICIAN had just been in room with patient placing padding/netting over IV site and reported patient minimally verbally responsive but did answer yes to question. After she exited room, heard oximeter alarming and upon entering room at 0514 sat was down to 65%. Patient was non responsive, snoring respirations, diaphoretic and pupils dilated and unresponsive. Rapid response/code stroke called. Patient placed on oxygen at 6L/min and sat up to 94%. BP 156/92 with HR of 97 (per in room monitor patient's HR was at 119 when oximeter first starting alarming). CBG was 126. YOON Beal and ER MDRey both in room. No response to verbal or pain stimuli. Began having gagging type reflex but did not vomit; suction set up but not needed. After 15 minutes, snoring respirations stopped and pupils no longer dilated. Patient able to grasp onto RN hand but still no verbal response. Slowing began to have more visual focus and when right arm lifted would turn head to right and look at RN. Keppra and Solumedrol given as per MD orders. was contacted and now in room and has spoken to YOON about what occurred. Patient is now able to respond to some questions asked and able to focus and maintain eye contact. Still making occasional gagging noises but does not answer as to whether he is nauseated or not so medicated with Zofran to prevent emesis. Now opens eyes and following some commands. Has weak but equal hand grasps and is able to lift both arms. Able to wiggle feet but when asked to lift legs states no. Still having expressive aphasia. Addendum entered by Joy Manriquez R.N. 07/06/18 03:59: NIH difficult to assess correctly due to continued expressive aphasia. When testing vision patient states he can see even when RN's hands outside of visual field. When testing sensory states both most of time when touching face/arms/legs but sometimes will identify touch correctly. States age is 38 but does know month. NIH remains at 5. Original Note: Admitted to room 227 from ER per stretcher accompanied by spouse, Sherry. Patient is alert and oriented but with expressive aphasia making communication difficult. Denies hearing/vision loss. Does complain of 4/10 headache which has been ongoing since prior to admission. NIH score of 5 reported to YOON Beal. Breath sounds CTA with RA sat of 96%. HRR in 90's at rest but increasing as high as 150's when up to bathroom; is being monitored on telemetry. BP elevated at 159/92. Denies nausea. BT present and abdomen is soft. Denies dysuria, frequency, urgency or incontinence; UA sent to lab per verbal order. Is able to move self in bed. Is weak and unsteady on feet during transfer from stretcher to bed so reminded to call for assistance before getting out of bed; spouse/patient verbalize understanding. Skin intact but does have scarring on left lower leg related to hx surgery. reports patient's left leg is several inches shorter than right leg. Denies having had any falls; fall risk is moderate. Oriented to room, bed controls and call light. Questions asked/answered. [address] Admission Note: The patient,Dusty Ge,68 y/o, was given written information regarding hospital policies, unit procedures and contact persons. Patient's smoking status: Never smoker. Vital Signs - 8 hr 07/05/18 21:24 07/05/18 22:03 07/05/18 22:30 Temperature 99.5 F Pulse Rate 114 H 91 H 88 Respiratory Rate 15 25 H 27 H Blood Pressure 155/86 H Blood Pressure [Right Arm] 147/76 H 166/83 H Pulse Oximetry 98 98 96 07/05/18 23:25 07/06/18 00:30 Temperature 98.6 F Pulse Rate 90 95 H Respiratory Rate 13 19 Blood Pressure 159/92 H Blood Pressure [Right Arm] 163/78 H Pulse Oximetry 93 96
[2018-07-06 01:37] LABS: Urine Amphetamines Negative (Negative); Urine Cocaine Negative (Negative); Urine MDMA Negative (Negative); Urine Methamphetamines Negative (Negative); Urine Morphine/Opi cutoff 2000 Negative (Negative); Urine Phencyclidine Negative (Negative); Urine Tetrahydrocannabinol Negative (Negative)
[2018-07-06 01:38] LABS: Urine Barbiturates Negative (Negative); Urine Benzodiazepines Negative (Negative); Urine Methadone Negative (Negative); Urine Oxycodone Negative (Negative); Urine Tricyclic Antidepressant Negative (Negative)
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
[2018-07-06 02:54] LABS: Appearance Urine UA Clear; Color Urine UA Yellow; Protein Urine UA Negative (Negative); Specific Gravity Urine UA >=1.030 (1.000-1.035)
[2018-07-06 02:55] LABS: Bilirubin Urine UA Negative (NEGATIVE); Culture Indicated Urine Cult Not Indicated; Glucose Urine UA NEGATIVE (Negative); Ketones Urine UA NEGATIVE (NEGATIVE); Leukocyte Esterase Urine UA NEGATIVE (NEGATIVE); Mucus Urine 1+ (Negative); Nitrite Urine UA NEGATIVE (Negative); Occult Blood Urine UA Negative (Negative); Urobilinogen Urine UA 0.2 E.U./dL (0.2)
[2018-07-06 03:18] LABS: Creatine Kinase 94 U/L (55-170)
[2018-07-06 03:31] LABS: Troponin I < 0.012 ng/mL (0.01-0.034)
[2018-07-06 05:17] LABS: Hemoglobin A1C% w Est Avg Glu 5.7 % (4.0-6.0)
[2018-07-06 05:25] LABS: Cholesterol 229 mg/dL (140-199); HDL Cholesterol 47 mg/dL (40-60); LDL Cholesterol Calculated 164 mg/dL (<100); Triglycerides 91 mg/dL (35-150); VLDL Cholesterol Calculated 18 mg/dL (2-30)
--- NOTE | 2018-07-06 05:26 | PC.NURSE ---
07/06 @ 0520 - PATIENT CGB IS 126. REPORTED TO Min THOMAS RN
[2018-07-06] MEDS: levETIRAcetam 1,000 MG in SODIUM CHLORIDE 0.9% 100 ML 440 ML IV (05:41)
[2018-07-06] MEDS: methylPREDNISolone 125 MG/2 ML VIAL IV (05:42)
--- NOTE | 2018-07-06 06:00 | DI.MRI.S_ITS ---
PROCEDURE: MR STROKE Pre- and post-contrast brain MRI, non-contrast brain MR angiogram, pre- and postcontrast neck MR angiogram INDICATIONS: neuro changes, aphasia, dysarthria TECHNIQUE: Brain: Noncontrast axial T1 spin echo, axial T2 fast spin echo, sagittal and axial FLAIR, coronal T2 fast spin echo, axial gradient echo, axial diffusion and ADC through the brain. After the administration of contrast, axial 3D VIBE of the cranial vasculature and brain. Brain MRA: Non-contrast 3-D time of flight MR angiogram, with multiple zyqvdjq-rfdktauti-xfegeqgkvn (MIP) reformats performed. Neck MRA: Axial and sagittal TruFISP through the neck. Coronal dynamic MR angiogram during administration of contrast in the arterial and venous phases, with 3-dimenstional bwqyrfu-fzxyluenu-syyilwhejt (MIP) reformats constructed from subtraction images. COMPARISON: [facility], CT, CT HEAD/BRAIN WO CON, 07/05/2018, 21:28. FINDINGS: Image quality: This examination is limited by involuntary motion artifact. BRAIN: CSF spaces: Ventricles are normal in size and shape. Basal cisterns are patent. No extra-axial fluid collections. Brain: No intracranial bleeds or mass effects. Huggins-white matter interface is normal. Diffusion weighted images show no acute ischemic insults. Brainstem appears normal. Normal intravascular flow voids are present. No abnormal intracranial enhancement. Skull and face: Calvarial marrow signal is normal. Orbits appear normal. Sinuses: Sinuses and mastoids are clear. BRAIN MR ANGIOGRAM: Anterior circulation: Intracranial internal carotid arteries demonstrate generalized irregularity throughout their petrous portions. The flow within the paired anterior cerebral arteries is normal and symmetric. The flow within the middle cerebral arteries is normal and symmetric. The anterior communicating artery is seen. No stenoses, occlusions, or aneurysms. Posterior circulation: The visualized portions of the vertebral arteries demonstrate normal caliber, and join to form a normal appearing basilar artery. The flow within the posterior cerebral arteries is normal and symmetric. No stenoses, occlusions, or aneurysms. NECK MR ANGIOGRAM: Carotids: Great vessels demonstrate a conventional anatomy as they arise from the aortic arch. The proximal great vessels are not well-seen. The origins of the common carotid arteries appear patent. The calibers and courses of both common carotid arteries are normal. The bifurcation regions appear normal bilaterally. The internal carotid arteries demonstrate normal course and caliber. Posterior circulation: The origins of the vertebral arteries are not well-seen. More superior portions of both vertebral arteries demonstrate normal course and caliber, and join to form a normal appearing basilar artery. Miscellaneous: Subclavian arteries appear patent. Pre-contrast images through the neck show no soft tissue abnormalities. IMPRESSION: Motion limited study. BRAIN MRI: No findings of acute or subacute infarction can be seen. Note is made of age-appropriate brain parenchymal volume loss and chronic small vessel ischemic changes. No masses or abnormal enhancement can be seen. BRAIN MR ANGIOGRAM: No significant intracranial arterial abnormality can be seen. Generalized irregularity can be seen within the petrous portions of the intracranial internal carotid arteries, which may be related to artifact. NECK MR ANGIOGRAM: Within the arteries of the neck, no hemodynamically significant stenosis can be seen. Dictated by: Diaz Pollock M.D. on 07/06/2018 at 7:19 Approved by: Diaz Pollock M.D. on 07/06/2018 at 7:27
[2018-07-06] MEDS: ONDANSETRON 4 MG/2 ML INJ IV (06:10)
[2018-07-06 06:11] LABS: Add Manual Diff / Slide Review NO; Basophils Absolute Auto 100 /uL (0-100); Basophils Percent Auto 0.4 % (0-2); Eosinophils Absolute Auto 200 /uL (0-450); Eosinophils Percent Auto 1.3 % (2-4); Hematocrit 41.3 % (41-53); Hemoglobin 14.1 g/dL (13.5-17.5); Lymphocytes Absolute Auto 1700 /uL (1100-4500); Lymphocytes Percent Auto 14.4 % (25-40); Mean Corpuscular Hemoglobin 32.5 PG (26-34); Mean Corpuscular Volume 95.6 fL (80-100); Monocytes Absolute Auto 800 /uL (0-900); Neutrophils Absolute Auto 8800 /uL (1500-7000); Neutrophils Percent Auto 76.9 % (50-75); Platelet Count 256 X10^3/uL (150-400); Red Blood Cell Count 4.33 X10^6/uL (4.5-5.9); Red Cell Distribution Width 12.9 % (11.6-14.8); White Blood Cell Count 11.5 X10^3/uL (4.5-11.0)
[2018-07-06 06:17] LABS: Creatine Kinase 90 U/L (55-170)
[2018-07-06 06:18] LABS: Alanine Aminotransferase 25 IU/L (21-72); Albumin 4.5 g/dL (3.5-5.0); Albumin Globulin Ratio 1.7 (1.0-2.8); Alkaline Phosphatase 84 U/L (38-126); Aspartate Aminotransferase 25 IU/L (17-59); BUN Creatinine Ratio 17.8 (6-22); Bilirubin Total 0.6 mg/dL (0.2-1.3); Blood Urea Nitrogen 16 mg/dL (9-20); Calcium 8.8 mg/dL (8.4-10.2); Carbon Dioxide 19 mmol/L (22-32); Chloride 104 mmol/L (98-107); Estimated Glomerular Filt Rate > 60.0 mL/min (>60); Globulin 2.7 g/dL (1.7-4.1); Glucose 166 mg/dL (80-110); HEMOLYSIS < 15 (0-50); Potassium 4.1 mmol/L (3.4-5.1); Sodium 140 mmol/L (137-145); Total Protein 7.2 g/dL (6.3-8.2)
[2018-07-06 06:39] LABS: HCO3 ABG 21 mmol/L (22-26); Oxygen Saturation ABG 97 % (95-100); PCO2 ABG 42.1 mmHg (35-45); PO2 ABG 96 mmHg (80-100); TCO2 ABG 22 mmol/L (21-31); pH ABG 7.31 (7.35-7.45)
--- NOTE | 2018-07-06 07:25 | PM.EVENT ---
Date Patient Seen: 07/06/18 Time Patient Seen: 05:20 RN asking to have patient seen at bedside. Patient seen at bedside promptly. I am being told that patient was noted to be hypoxic, this prompted the nurse to check on the patient. At time of evaluation patient is observed to be extremely diaphoretic. He is hyperventilating. His O2 demand is at 6 L with SpO2 of 93%. He is not responding to commands and does not follow commands. There is some posturing. No stiffening or overt muscular contractions or fasciculations. There is mild incontinence of urine. Patient is a DNR. No aggressive interventions attempted. DDx: Seizure activity vs cerebral edema - BP 156/93 - Glu 166 - 1000 mg of Keppra - 125 mg of solumedrol - CBC, CMP Patient's was notified. Arrived at bedside and was updated on course of events. Code status was revisited with the and patient remains to be a DNR. Patient was pain continuously reassessed, within 30 minutes breathing improved, he is starting to be more responsive but still not communicative At at 1 hour re-assessment, vital signs remained stable, now is seen to have spontaneous movement of upper and lower extremities, makes an effort to communicate in phrases that her clear and understandable
[2018-07-06] MEDS: ASPIRIN 81 MG TAB PO (09:59)
[2018-07-06] MEDS: SODIUM CHLORIDE 0.9% 1,000 ML 100 ML IV (11:06)
--- NOTE | 2018-07-06 11:43 | PC.NURSE ---
Patient picked up at beginning of shift for MR Stroke protocol. at bedside. Upon his return from test, patient assisted into bed, his gown and underwear were wet with urine and sweat. Patient changed, given sponge bath and repositioned back in bed. Patient has limited response answering yes or no. Not able to follow commands. Able to move all extremities weakly, but not following commands when directed to perform specific movements or tasks. States his name is Carloz. VSS, continuous pulse ox in place. O2 decreased from 6L to 4L, as patient was at 100% ). ECHO completed at bedside. Patient sleeping soundly at this time. is waiting to speak with MD about results and plan of care. Bed alarm on, continue to monitor.
[2018-07-06 13:25] LABS: Creatine Kinase 100 U/L (55-170)
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
[2018-07-06 13:38] LABS: Troponin I < 0.012 ng/mL (0.01-0.034)
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
--- NOTE | 2018-07-06 13:53 | CM.DANOTE ---
DCP/Assessment: Reviewed chart. Patient is a 68yr old male admitted to [facility] with stroke like symptoms. PCP listed is Mirlande Francis. Primary payor is [address] [place] [address]. Reviewed chart. Spoke with Dr. Carroll in AM rounds and she reports that ECHO planned for today. Patient came in with stroke like symptoms that have not resolved. Several hours later Dr. Carroll determined that patient would be best served at higher level facility. Patient expected to transfer to [facility] on [place] today. NETWORK DEVELOPMENT COORDINATOR met with spouse/Sherry at bedside briefly explained role. Spouse clearly emotional over transfer, offered support. RN reports that she was told by spouse that patient completely I prior to this event. Offered spouse support and notified UR/Marek of patient's immediate transfer. P: Transfer to [facility] today. LEXIS Vines Discharge Planning/Care Management CM Discharge Assessment Start: 07/06/18 13:38 Freq: Status: Active Protocol: Document 07/06/18 13:38 KJS (Rec: 07/06/18 13:53 KJS [id number]) Discharge Planning Assessment Assigned Microsoft Crm Developer LEXIS Vines Contact Information Sherry Joo (spouse) [phone] Advance Directives? No History Provided By Patient Family Member Medical Record Prior Living Arrangements House Household Members spouse Type of transporation used prior to Drives own vehicle admit Comment Prior to admit patient completely I with all ADL's. Independent with ADL's Yes Is patient alert and oriented? Yes Caregiver for Another No Barriers to Discharge No Discharge Plan Transfer to Higher Level of Care Transportation Arrangement Patient transferring to [facility] on [address]. Review Status In Process Next Review Type Continued Stay Review
--- NOTE | 2018-07-06 16:16 | PC.NURSE ---
Pt left by [facility] transport at 1600. LANETTE Ruiz gave report to ambulance crew and staff at [facility]. Spouse accompanied pt.
== END 2018-07-06 16:00 | disposition short-term general hospital (02) | DRG 98 ==
LOC: ED 23:12 → AC 23:19
PROVIDERS: Internal Medicine; Admitting Provider Nurse Practitioner Gerontology; Emergency Provider Emergency Medicine; Family Provider Nurse Practitioner Family; PCP Nurse Practitioner Family; Visit Provider Nurse Practitioner Gerontology
DX: B00.4 Herpesviral encephalitis (principal); R47.01 Aphasia; R41.4 Neurologic neglect syndrome; R56.9 Unspecified convulsions; E66.9 Obesity, unspecified; Z68.37 Body mass index [BMI] 37.0-37.9, adult; I10 Essential (primary) hypertension; E78.5 Hyperlipidemia, unspecified
CPT/HCPCS: 36415; 36591; 36600; 70450; 70548; 70553; 80048; 80053; 80061; 80305; 81001; 82550; 82805; 82962; 83036; 83605; 84484; 85025; 85610; 85730; 87040; 93005; 94762; 96360; 96361; 97166; 99283; 99285; A9579; C8929; J1953; J2405; J2930; Q9957

== ENCOUNTER → 2018-08-07 12:45 | Outpatient (CLI) | payer OTHER, SELFPAY ==
[2018-07-06 00:30] VITALS: BMI 37.4
--- NOTE | 2018-08-07 | DI.RAD.S_ITS ---
This blank DEXA report has been sent in error by the PACS system. The correct and complete report will be forthcoming in 1-2 days. Thank you for your patience and understanding. Dictated by: Andre Hummel M.D. on 08/07/2018 at 15:30 Approved by: Andre Hummel M.D. on 08/07/2018 at 15:30
--- NOTE | 2018-08-07 | DI.RAD.S_ITS ---
PROCEDURE: XR THORACIC SPINE 3V INDICATIONS: PATHOLOGICAL FRACTURE WITH ROUTINE HEALING TECHNIQUE: 3 views of the thoracic spine were acquired. COMPARISON: [facility], CT, ABDOMEN/PELVIS WITH CONTRAST, 12/23/2007, 14:15. [facility], CR, CHEST 2 VIEW, 10/25/2010, 10:55. [facility], , DEXA AXIAL SKELETON, 03/01/2013, 12:53. [facility], , CHEST 2 VIEW, 02/13/2016, 12:48. FINDINGS: Bones: No dislocations on the lateral view there appears to be a T12 mild anterior wedge compression fracture with ostiolysis involving the anterior two thirds of the vertebral body marrow space and the anterior border of the vertebral body cortex appears eroded. No suspicious bony lesions. 12 pairs of ribs are noted, and appear intact where visualized. Soft tissues: No paravertebral stripe thickening. A previously present hiatal hernia is seen on the current plain film imaging there is an excess of soft tissue in the area of the hiatus hernia that has not been previously present. In this clinical circumstance of a reported pathologic fracture this might represent evidence of a gastric carcinoma in the area of the hiatal hernia. IMPRESSION: The clinical history of pathologic fracture is not accompanied by additional clinical information of area of the pathologic fracture or a corresponding imaging studies through that area of diagnosis. The current study appears to show an osteolytic process involving the anterior two thirds of the T12 vertebral body and a mild pathologic fracture with height reduction at that level. Possible gastric mass in addition to hiatal hernia behind the heart rate Please correlate clinically to determine whether proceeding to spine MRI is warranted or whether CT scanning of the chest/abdomen/pelvis should be obtained for additional assessment of the abnormalities discussed above. Dictated by: Andre Hummel M.D. on 08/07/2018 at 15:30 Approved by: Andre Hummel M.D. on 08/07/2018 at 15:36
== END ==
PROVIDERS: Family Provider Nurse Practitioner Family; PCP Nurse Practitioner Family; Visit Provider Nurse Practitioner Family
DX: M84.40XD Pathological fracture, unspecified site, subsequent encounter for fracture with routine healing (principal); M81.0 Age-related osteoporosis without current pathological fracture
CPT/HCPCS: 72072; 77080

== ENCOUNTER → 2018-09-07 08:52 | Outpatient (CLI) | payer OTHER, SELFPAY ==
[2018-07-06 00:30] VITALS: BMI 37.4
--- NOTE | 2018-09-07 | DI.CT.S_ITS ---
PROCEDURE: CT CHEST ABD PEL W CON INDICATIONS: Abnormal T-spine X-ray TECHNIQUE: After the administration of oral and intravenous contrast, 5 mm thick sections acquired from the lung apices to the symphysis. 5 mm coronal and sagittal reformats were performed, with additional 7 mm coronal MIP reformats through the lungs. For radiation dose reduction, the following was used: automated exposure control, adjustment of mA and/or kV according to patient size. COMPARISON: [facility], CR, XR THORACIC SPINE 3V, 08/07/2018, 14:17. [facility], CT, ABDOMEN/PELVIS WITH CONTRAST, 12/23/2007, 14:15. FINDINGS: Image quality: Excellent. CHEST: Lungs and pleura: No acute airspace opacities. No pleural effusions or pneumothorax. Central and peripheral airways appear patent and normal in caliber. Mediastinum: Heart size is normal. No pericardial effusion. No mediastinal or hilar adenopathy by size criteria. Thoracic aorta and central pulmonary arteries are normal in size. Esophagus is normal in caliber. There is a moderate-sized hiatal hernia. Chest wall: No axillary or supraclavicular adenopathy by size criteria. Thyroid gland is normal. ABDOMEN: Solid organs: Mild diffuse hepatic fatty infiltration. Liver is normal in size and enhancement. Gallbladder is normal. Biliary system is non-dilated. Pancreas enhances normally. Spleen is normal in size and enhancement. No adrenal nodules. Kidneys demonstrate normal size and enhancement, without hydronephrosis. There is a 4 mm nonobstructive stone in the right kidney and a 3 mm stone versus stone in the left kidney. Peritoneum and bowel: There is a 1.4 x 2.5 cm mass or mass-like density in the posterior wall of the stomach. There are multiple colonic diverticula. No findings to suggest acute diverticulitis. Appendix is normal. Bowel loops demonstrate normal wall thickness and caliber. No free fluid or air. Nodes and vessels: No retroperitoneal or mesenteric adenopathy by size criteria. Aorta and inferior vena cava are normal in size. Miscellaneous: No ventral hernias. PELVIS: Genitourinary: Bladder wall thickness is normal. Prostate is mildly enlarged. Miscellaneous: No inguinal hernias or adenopathy. Bones: No suspicious bony lesions. Severe chronic vertebral body compression fracture of T7. Degenerative changes are noted in thoracic and lumbar spine. IMPRESSION: 1. A 1.4 x 2.5 cm mass or mass-like density in the posterior wall of the stomach. Recommend EGD for followup evaluation. 3. There is a moderate-sized hiatal hernia. 3. No metastatic disease is identified in chest, abdomen or pelvis. 4. Diverticulosis without active diverticulitis. 5. Bilateral nonobstructive renal calculi. 6. Severe compression fracture of T7. Dictated by: Khloe Shaw M.D. on 09/07/2018 at 14:48 Approved by: Khloe Shaw M.D. on 09/08/2018 at 11:01
[2018-09-07 10:03] LABS: BUN Creatinine Ratio 18.8 (6-22); Blood Urea Nitrogen 15 mg/dL (9-20); Calcium 9.1 mg/dL (8.4-10.2); Carbon Dioxide 28 mmol/L (22-32); Chloride 105 mmol/L (98-107); Estimated Glomerular Filt Rate > 60.0 mL/min (>60); Glucose 106 mg/dL (80-110); HEMOLYSIS 25 (0-50); Potassium 4.5 mmol/L (3.4-5.1); Sodium 140 mmol/L (137-145)
== END ==
PROVIDERS: PCP Family Medicine; Visit Provider Neurological Surgery
DX: R91.1 Solitary pulmonary nodule (principal); K44.9 Diaphragmatic hernia without obstruction or gangrene; K57.90 Diverticulosis of intestine, part unspecified, without perforation or abscess without bleeding; N20.0 Calculus of kidney; M48.54XA Collapsed vertebra, not elsewhere classified, thoracic region, initial encounter for fracture
CPT/HCPCS: 36415; 71260; 74177; 80048; Q9967

== ENCOUNTER → 2019-03-30 16:18 | Outpatient (CLI) | payer MEDICARE, SELFPAY ==
[2018-07-06 00:30] VITALS: BMI 37.4
--- NOTE | 2019-03-30 | DI.US.S_ITS ---
PROCEDURE: US RENAL COMPLETE INDICATIONS: CALCULUS OF KIDNEY TECHNIQUE: Real-time scanning was performed of the kidneys and bladder, with image documentation. COMPARISON: None. FINDINGS: Kidneys: Kidneys are normal in size. Right kidney measures 11.3 cm long; left kidney measures 10.4 cm long. Right renal cortical thickness is 1.4 cm; left renal cortical thickness is 1.3 cm. Renal cortical echotexture is normal. No right-sided hydronephrosis or nephrolithiasis bilaterally. There is slight prominence of the lower third collecting system at the left kidney, however the appearance may be secondary to small peripelvic cysts instead. No suspicious solid mass lesions. Bladder: Pre-void bladder volume is 125 mL. Post-void residual is 8.0 mL. Pre-void images demonstrate no intraluminal masses or stones. On pre-void images, bilateral ureteral jets are noted with color Doppler interrogation. (Of note, ureteral jets may not be detectable in up to 25% of cases due to insufficient differences in specific gravity between ureteral and bladder urine). Miscellaneous: No free pelvic fluid. IMPRESSION: A urinary tract stone is not found. There is slight prominence of the lower third left-sided collecting system (versus small adjacent peripelvic cysts superimposed) which can be seen in the setting of recent passage of a calculus. Normal bladder function. No bladder calculus seen. Dictated by: Andre Hummel M.D. on 03/31/2019 at 9:56 Approved by: Andre Hummel M.D. on 03/31/2019 at 10:10
== END ==
PROVIDERS: PCP Family Medicine; Referring Provider Family Medicine; Visit Provider Family Medicine
DX: N20.0 Calculus of kidney (principal); R39.9 Unspecified symptoms and signs involving the genitourinary system
CPT/HCPCS: 76770

== ENCOUNTER 2022-04-09 09:00 | Day surgery (SDC) | payer MEDICARE, SELFPAY ==
[2018-07-06 00:30] VITALS: BMI 37.4
[2022-04-09] VITALS (7 sets, daily range): BP systolic 92–129; BP diastolic 59–79; PULSE 65–101; RESP 15–17; TEMP 36.6; O2SAT 92–99; BMI 39.9
[2022-04-09] MEDS: LACTATED RINGERS 1,000 ML 200 ML IV (10:29)
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
--- NOTE | 2022-04-09 11:31 | PM.OP.COLON ---
Operative Date/Time/Diagnoses Date of procedure: 04/09/22 Time of procedure: 11:31 Pre-op diagnosis: Personal history of colonic polyps Post-op diagnosis: same Procedure & Clinicians Study performed: Colonoscopy Same procedure as scheduled: Yes Indications: Personal history of colonic polyps Surgeon: Adria Shaw Procedure Notes Procedure in detail: The history and physical was performed/updated and the patient is ASA class is 2. The procedure was discussed in detail with the patient. Potential risks complications including infection, bleeding, missed diagnosis, perforation, need for surgery, and were explained. Their questions were answered and informed consent was obtained. Patient was brought to the procedure room and placed standard monitoring equipment. The patient's vital signs were monitored continuously throughout the entire procedure. Prior to starting time-out was performed. The patient was placed in the left lateral recumbent position. Procedural sedation was administered by anesthesia. Examination began with a thorough inspection of the perianal area there was no evidence of fissures, fistulae, external hemorrhoids or cutaneous malignancy. The colonoscopy scope was then placed into the anal canal and was advanced to the cecum, which was identified by the ileocecal valve and the confluence of the taenia. The scope was then slowly withdrawn examining colon thoroughly in all directions, irrigating it of any residual stool. Within the ascending colon there was a 5 mm adenomatous appearing polyp which was removed with cold snare. Despite multiple attempts the specimen could not be retrieved. The remainder of the colon was significant for diverticular disease. The patient tolerated the procedure well. They will be discharged once criteria are met. The prep was of poor quality. The withdrawl time was 10 minutes. Specimen(s): none sent Impression: Colonic polyp Post-procedure Recommendations: High fiber diet Plan for aftercare: No further colonoscopy is necessary Disposition: same day surgery
== END 2022-04-09 12:33 | disposition home or self-care (01) ==
PROVIDERS: PCP Family Medicine; Referring Provider Surgery; Visit Provider Surgery
PROC: 0DJD8ZZ Inspection of Lower Intestinal Tract, Via Natural or Artificial Opening Endoscopic (ICD-10-PCS; CPT 45378; principal; 2022-04-09 10:15)
DX: Z12.11 Encounter for screening for malignant neoplasm of colon (principal); Z86.010 Personal history of colon polyps; K57.30 Diverticulosis of large intestine without perforation or abscess without bleeding; K63.5 Polyp of colon
CPT/HCPCS: 45385; J2704